=== PATIENT | female | born 1945 | race Caucasian/White ===

== ENCOUNTER 2020-12-26 21:27 | Emergency (ER) | payer MEDICARE ==
[~2020-12-26 21:27] MED LIST: CITALOPRAM HBR20 MG PO; IMITREX100 MG PO; INDERAL TAB 4040 MG PO; LEVOTHYROXINE25 MCG PO; LISINOPRIL20 MG PO; OMEPRAZOLE20 M1 PO; PREDNISONE20 MG PO
[2020-12-26] MEDS ORDERED: Voltaren Gel 1 % TOP (22:20)
== END 2020-12-26 22:47 | disposition home or self-care (01) ==
LOC: ER1 21:27
DX: M54.42 Lumbago with sciatica, left side (principal); I48.91 Unspecified atrial fibrillation; Z88.2 Allergy status to sulfonamides; Z88.5 Allergy status to narcotic agent; Z79.899 Other long term (current) drug therapy
CPT/HCPCS: 96372; 99283; J1100

== ENCOUNTER → 2021-09-03 | Outpatient (CLI) | payer MEDICARE ==
[~2021-09-03] MED LIST changes: +Voltaren Gel 1 % TOP
== END ==
LOC: RAD 10:48
DX: J06.9 Acute upper respiratory infection, unspecified (principal)
CPT/HCPCS: 71046